=== PATIENT | female | born 1975 | race Two or more races ===

== ENCOUNTER 2017-07-15 09:25 | Emergency (ER) | payer OTHER ==
[2017-07-15 09:47] LABS: ADD MAN DIFF? NO
[2017-07-15 09:49] LABS: BASO # 0.1 x10^3/uL (0.0-0.2); BASO % 1 % (0-3); EOS # 0.3 x10^3/uL (0.0-0.7); EOS % 3 % (0-3); HEMATOCRIT 36.7 % (36.0-47.0); HEMOGLOBIN 12.8 g/dL (12.0-15.5); LYMPH # 2.2 x10^3/uL (1.0-4.8); LYMPH % 28 % (24-48); MEAN CORPUSCULAR HEMOGLOBIN 28 pg (25-35); MEAN CORPUSCULAR HGB CONC 35 g/dL (31-37); MEAN CORPUSCULAR VOLUME 79 fL (79-100); MONO # 0.5 x10^3/uL (0.0-1.1); MONO % 6 % (0-9); NEUT % 62 % (31-73); PLATELET COUNT 270 x10^3/uL (140-400); RED BLOOD COUNT 4.64 x10^6/uL (3.50-5.40); RED CELL DISTRIBUTION WIDTH 12.5 % (11.5-14.5)
[2017-07-15 10:00] LABS: ANION GAP 9 (6-14); BILIRUBIN,URINE NEGATIVE (NEG); BLOOD UREA NITROGEN 11 mg/dL (7-20); BUN/CREATININE RATIO 14 (6-20); CALCIUM 8.6 mg/dL (8.5-10.1); CARBON DIOXIDE 26 mmol/L (21-32); CHLORIDE 102 mmol/L (98-107); CLARITY,URINE CLEAR; COLOR,URINE YELLOW; CREATININE 0.8 mg/dL (0.6-1.0); GFR 78.7; GLUCOSE 165 mg/dL (70-99); GLUCOSE,URINE NEGATIVE (NEG); NITRITE,URINE NEGATIVE (NEG); POTASSIUM 3.9 mmol/L (3.5-5.1); PROTEIN,URINE NEGATIVE (NEG-TRACE); SODIUM 137 mmol/L (136-145); UROBILINOGEN,URINE 0.2 mg/dL (0.2 mg/dL)
[2017-07-15] MEDS: ONDANSETRON PF 4 MG/2 ML VIAL. IV (10:00)
[2017-07-15] MEDS ORDERED: CONTRAST GIVEN MC (10:00)
[2017-07-15] MEDS: MORPHINE SULFATE 4 MG/ML DISP.SYRIN. IV (10:00)
[2017-07-15 10:05] LABS: ALBUMIN 3.5 g/dL (3.4-5.0); ALBUMIN/GLOBULIN RATIO 0.8 (1.0-1.7); ALK PHOS 57 U/L (46-116); ALT (SGPT) 59 U/L (14-59); AST (SGOT) 47 U/L (15-37); LIPASE 173 U/L (73-393); TOTAL BILIRUBIN 0.5 mg/dL (0.2-1.0); TOTAL PROTEIN 7.9 g/dL (6.4-8.2)
[2017-07-15 10:05] LABS: D-DIMER 0.54 ug/mlFEU (0.00-0.50)
[2017-07-15 10:12] LABS: BACTERIA,URINE MODERATE /HPF (0-FEW); SQUAMOUS EPITHELIAL CELL,UR MANY /LPF
[2017-07-15] MEDS: IOHEXOL 240 MG/ML 50ML VIAL. PO (11:02)
[2017-07-15] MEDS: IOHEXOL 300 MG/ML 100ML VIAL. IV (11:03)
[2017-07-15] MEDS: LIDO:MAALOX 1:1 20 ML SINGLE DOSE. SWSW (12:13)
== END 2017-07-15 12:10 | disposition home or self-care (01) ==
LOC: ER 09:25
DX: N39.0 Urinary tract infection, site not specified (principal); K21.9 Gastro-esophageal reflux disease without esophagitis; Z90.710 Acquired absence of both cervix and uterus; Z98.890 Other specified postprocedural states
CPT/HCPCS: 36415; 71275; 74177; 80053; 81001; 83690; 85025; 85379; 87086; 93005; 99285-25; Q9966; Q9967

== ENCOUNTER 2018-05-07 18:57 | Emergency (ER) | payer OTHER ==
[~2018-05-07] VITALS: Ht 162.6 cm; Wt 89.4 kg
[~2018-05-07 18:57] MED LIST: SULF1TAB24 PO
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
[2018-05-07 21:31] VITALS: BP 177/77
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
[2018-05-07] MEDS ORDERED: NAPR-514 PO (23:06)
[2018-05-07] MEDS ORDERED: ORPH100T PO (23:06)
== END 2018-05-07 23:22 | disposition home or self-care (01) ==
LOC: EEVIPCON 18:57 → ER 18:57
DX: S03.43XA Sprain of jaw, bilateral, initial encounter (principal); S03.03XA Dislocation of jaw, bilateral, initial encounter; Y04.0XXA Assault by unarmed brawl or fight, initial encounter; Y93.89 Activity, other specified; Y92.89 Other specified places as the place of occurrence of the external cause; Y99.8 Other external cause status; J34.2 Deviated nasal septum
CPT/HCPCS: 70486; 99284-25